=== PATIENT | male | born 1990 | race Two or more races ===

== ENCOUNTER 2024-09-05 21:28 | Emergency (ER) | payer OTHER ==
[~2024-09-05] VITALS: Ht 185.4 cm; Wt 147.4 kg
[2024-09-05] MEDS ORDERED: HYDROMORPHONE 1 MG/1 ML DISP.SYRIN ONE (23:33)
[2024-09-05] MEDS ORDERED: ONDANSETRON 4 MG TAB.RAPDIS ONE (23:33)
[2024-09-05] MEDS: ONDANSETRON 4 MG TAB.RAPDIS PO ONE (23:34)
[2024-09-05] MEDS: HYDROMORPHONE 1 MG/1 ML DISP.SYRIN IM ONE (23:34)
[2024-09-05 23:49] LABS: APPEARANCE,URINE CLEAR (CLEAR); BILIRUBIN,URINE Negative (NEGATIVE); BLOOD, URINE Negative Ery/uL (NEGATIVE); COLOR,URINE YELLOW (YELLOW); KETONES,URINE Trace mg/dL (NEGATIVE); LEUKOCYTE ESTERASE ,URINE Negative (NEGATIVE); PH,URINE 5.5 (5.0-8.0); PROTEIN,URINE Negative (NEGATIVE); UGLUCOSE Negative (NEGATIVE); UROBILINOGEN,URINE 0.2 EU/dL (0.2)
[2024-09-05 23:50] LABS: NITRITE, URINE NEGATIVE (NEGATIVE)
[2024-09-06] LABS: AMPHETAMINE, URINE NEGATIVE (NEGATIVE); BARBITURATE, URINE NEGATIVE (NEGATIVE); BENZODIAZEPINE, URINE NEGATIVE (NEGATIVE); CANNABINOID, URINE NEGATIVE (NEGATIVE); COCCAINE, URINE NEGATIVE (NEGATIVE); OPIATE, URINE NEGATIVE (NEGATIVE); PHENCYCLIDINE SCREEN,URINE NEGATIVE (NEGATIVE)
[2024-09-06] MEDS ORDERED: KETO10TA2 PO (01:33)
[2024-09-06 02:11] VITALS: BP 132/84; TEMP 98; O2SAT 100
== END 2024-09-06 02:12 | disposition home or self-care (01) ==
LOC: ER 21:30
DX: S39.012A Strain of muscle, fascia and tendon of lower back, initial encounter (principal); S16.1XXA Strain of muscle, fascia and tendon at neck level, initial encounter; S80.211A Abrasion, right knee, initial encounter; V00.131A Fall from skateboard, initial encounter; Y93.51 Activity, roller skating (inline) and skateboarding; Y92.480 Sidewalk as the place of occurrence of the external cause; Y99.8 Other external cause status; Z79.899 Other long term (current) drug therapy
CPT/HCPCS: 99285; 72125; 96372; 73502; 70450; 72131; 72128; 73110; 80307; 81003; Q0162; J1171